=== PATIENT | male | born 1955 | race Caucasian/White ===

== ENCOUNTER 2019-09-19 14:29 | Day surgery (SDC) | payer MEDICARE, OTHER ==
[~2019-09-19] VITALS: Ht 172.7 cm; Wt 74.1 kg
[~2019-09-19 14:29] MED LIST: ASPIRIN 81M81 MG/TA2 PO; FLEXERIL 1010 MG/TAB PO; NORCO 325 MG-51 TAB PO
[2019-09-19 15:05] VITALS: BP 135/85; PULSE 79; TEMP 98.2
[2019-09-19] MEDS ORDERED: PRILOSEC 20MG20 MG PO (15:11)
[2019-09-19] MEDS ORDERED: MULTI VITAMINS1 TAB PO (15:11)
[2019-09-19 16:35] VITALS: BP 113/86; PULSE 80; TEMP 98.2
[2019-09-19 16:50] VITALS: BP 111/80; PULSE 74
[2019-09-19 17:05] VITALS: BP 112/81; PULSE 72
--- NOTE | 2019-09-19 17:30 | NUR ---
Pt returned via cart to [facility] 8. VSS-see flowsheet. present. Pt tolerated jello and juice. Dr Kahn in to see pt post procedure. Discharge teaching completed, pt and verbalized understanding. IV removed, pressure dressing applied. Dc teaching completed. Pt dressed for dc. Taken via wheelchair to private vehicle for dc home with driving.
== END 2019-09-19 17:30 | disposition home or self-care (01) ==
LOC: SDCO 14:29
DX: K22.10 Ulcer of esophagus without bleeding (principal); J02.9 Acute pharyngitis, unspecified; K12.1 Other forms of stomatitis; K63.89 Other specified diseases of intestine; K29.70 Gastritis, unspecified, without bleeding
CPT/HCPCS: J2250; J3010

== ENCOUNTER 2020-11-07 07:03 | Day surgery (SDC) | payer MEDICARE, OTHER ==
[~2020-11-07] VITALS: Ht 172.7 cm; Wt 56.0 kg
[~2020-11-07 07:03] MED LIST changes: +MULTI VITAMINS1 TAB PO; +PRILOSEC 20MG20 MG PO
[2020-11-07] MEDS ORDERED: GLUCOPHAGE500 MG/TAB PO (07:16)
--- NOTE | 2020-11-07 07:30 | NUR ---
Patient provides a medication list that lists a multivitamin and omeprazole as his home medications. He states he is a type 2 diabetic as well. When asked about diabetic medications, he states he takes metformin twice daily, "a diabetic shot" once weekly, and a "diabetic shot" after meals. He is not sure of the dose of metformin or the name or dose of his "diabetic shots". He has not taken any of his weekly injections in 6 weeks. He has not taken his metformin in one week. He has not taken his after meals injections in 2 days. His BG when checked reads 117. He is instructed to follow-up with his PCP and states he has an uncoming appointment in November. Will notify endoscopy nurse as well.
[2020-11-07 07:35] VITALS: BP 134/99; PULSE 97; TEMP 98.6
--- NOTE | 2020-11-07 07:45 | NUR ---
Patient states that he also takes a blood pressure medication, "a little tiny pill", once daily and he last took that on Tuesday. He does not know the name of this medication.
[2020-11-07 08:35] VITALS: BP 104/77; PULSE 92
--- NOTE | 2020-11-07 08:35 | NUR ---
PATIENT TO [facility] 5 POST PROCEDURE VIA CART WITH RN. AMBULATORY TO CHAIR WITH ASSIST OF 2. MADE COMFORTABLE IN CHAIR, WARM BLANKETS GIVEN. VITAL SIGNS TAKEN. PATIENT VERY SLEEPY. RECLINING IN CHAIR. RESTING IN CHAIR.
[2020-11-07 08:50] VITALS: BP 126/98; PULSE 86
--- NOTE | 2020-11-07 08:57 | NUR ---
AT BEDSIDE TO TALK WITH PATIENT
[2020-11-07 09:05] VITALS: BP 122/82; PULSE 89
--- NOTE | 2020-11-07 09:05 | NUR ---
OFFERED PATIENT FOOD AND DRINK PATIENT DRINKING JUICE AND MUFFIN WITHOUT DIFFICULTY NO NAUSEA
[2020-11-07 09:15] VITALS: BP 135/98; PULSE 79
--- NOTE | 2020-11-07 09:15 | NUR ---
PATIENT READY TO GO HOME. IV REMOVED FROM RIGHT AC. NO REDNESS OR SWELLING. DISMISSAL INSTRUCTIONS GIVEN. VERBAL EXPLANATION GIVEN AND HARD COPIES GIVEN. DENIES QUESTIONS AND VERBAL UNDERSTANDING GIVEN.
--- NOTE | 2020-11-07 09:25 | NUR ---
PATIENT ESCORTED VIA WHEELCHAIR TO FRONT ENTRANCE TO APPLIANCES SAMPLE MAKER WITH RN.
== END 2020-11-07 09:25 ==
LOC: SDCO 07:03
DX: D12.8 Benign neoplasm of rectum (principal); R13.12 Dysphagia, oropharyngeal phase; G89.29 Other chronic pain; E11.9 Type 2 diabetes mellitus without complications; Z20.822 Contact with and (suspected) exposure to COVID-19; Z87.891 Personal history of nicotine dependence
CPT/HCPCS: J2704; J7030